=== PATIENT | female | born 1990 | race Caucasian/White ===

== ENCOUNTER 2018-04-30 20:44 | Emergency (ER) | payer OTHER ==
[2018-04-30] MEDS ORDERED: solu-MEDROL 125 MG IM ONE (21:33)
[2018-04-30] MEDS ORDERED: ATARAX 25 MG PO ONE (21:36)
--- NOTE | 2018-04-30 21:43 | ERPHSYRPT ---
- History of Present Illness Time Seen by Provider: 04/30/18 21:27 Source: patient Exam Limitations: no limitations Patient Subjective Stated Complaint: pt reports stress induced hives. states shes had them for a week, shes been taking oral prednisone since with benadryl with no improvement. Triage Nursing Assessment: pt is aox3, pupils perrl, pt afebrile, resps easy and non labored, lung sounds are clear throughout, radial pulses strong and equal, cap refill <3 seconds. skin is pink warm dry. hives noted to the arms legs chest and scalp. skin is intact. Physician History: 27-year-old white female with history of stress-induced hives arrives with complaint of generalized itching on her abdomen chest back legs arm symptoms for 8 days. She states she's been taking Benadryl at home also taking tapering dose of prednisone. Past medical history includes stress-induced hives. Anxiety. Past surgical history includes tonsillectomy and adenoidectomy, , orthopedic surgery, tubal ligation, salpingectomy secondary to tubal Last menstrual period now Patient states she took 25 mg Benadryl this morning 50 mg just prior to arrival She has a prednisone taper Timing/Duration: day(s) (8 days) Severity: moderate Modifying Factors: Improves With: medication (taking Benadryl twice a day, tapering prednisone) Associated Symptoms: rash (itching to extremities back chest with hives), No nausea, No vomiting, No abdominal pain, No shortness of breath, No heartburn, No diaphoresis, No cough, No chills, No chest pain, No fever, No headaches, No loss of appetite, No malaise Allergies/Adverse Reactions: aspirin Allergy (Verified 04/30/18 21:09) codeine Allergy (Verified 04/30/18 21:09) Penicillins Allergy (Verified 04/30/18 21:09) Sulfa (Sulfonamide Antibiotics) Allergy (Verified 04/30/18 21:09) Home Medications: Citalopram Hydrobromide [Citalopram HBr] 20 mg PO DAILY 04/30/18 [History] Lorazepam 0.5 mg [Ativan 0.5 MG] 0.5 mg PO Q4H PRN PRN 06/16/18 [History] - Review of Systems Constitutional: No Fever, No Chills Eyes: No Symptoms Ears, Nose, & Throat: No Symptoms Respiratory: No Cough, No Dyspnea Cardiac: No Chest Pain, No Edema, No Syncope Abdominal/Gastrointestinal: No Abdominal Pain, No Nausea, No Vomiting, No Diarrhea Genitourinary Symptoms: No Dysuria Musculoskeletal: No Back Pain, No Neck Pain Skin: Other (Itching to extremities on arms legs back chest hives at times) Neurological: No Dizziness, No Focal Weakness, No Sensory Changes Psychological: No Symptoms Endocrine: No Symptoms All Other Systems: Reviewed and Negative - Past Medical History Pertinent Past Medical History: Yes Other Medical History: stress induced hives - Past Surgical History Past Surgical History: Yes Musculoskeletal: Orthopedic Surgery Female Surgical History: Section, Other Other Surgical History: right arm. salping - Social History Smoking Status: Current every day smoker Drug Use: none Patient Lives Alone: No - Female History Hx Last Menstrual Period: 04/30/18 Hx Now: No - Nursing Vital Signs Nursing Vital Signs: Initial Vital Signs Temperature 98.6 F 04/30/18 20:50 Pulse Rate 95 H 04/30/18 20:50 Respiratory Rate 20 04/30/18 20:50 Blood Pressure 128/89 04/30/18 20:50 O2 Sat by Pulse Oximetry 99 04/30/18 20:50 Pain Scale Pain Intensity 0 - Physical Exam General Appearance: mild distress Eye Exam: PERRL/EOMI, eyes nml inspection Ears, Nose, Throat Exam: normal ENT inspection, TMs normal, pharynx normal, moist mucous membranes Neck Exam: normal inspection, non-tender, supple, full range of motion Respiratory Exam: normal breath sounds, lungs clear, No respiratory distress Cardiovascular Exam: regular rate/rhythm, normal heart sounds, normal peripheral pulses Gastrointestinal/Abdomen Exam: soft, normal bowel sounds, No tenderness, No mass Back Exam: normal inspection, normal range of motion, No CVA tenderness, No vertebral tenderness Extremity Exam: normal inspection, normal range of motion, pelvis stable Neurologic Exam: alert, oriented x 3, cooperative, basic combatant swimmer II-XII nml as tested, normal mood/affect, nml cerebellar function, nml station & gait, sensation nml, No motor deficits Skin Exam: normal color, warm, dry, No rash Lymphatic Exam: No adenopathy SpO2 Interpretation: normal (99%) SpO2: 99 Oxygen Delivery: Room Air - Course Nursing assessment & vital signs reviewed: Yes Ordered Tests: Medication Summary Generic Name Dose Route Start Last Admin Trade Name Freq PRN Reason Stop Dose Admin Hydroxyzine HCl 25 mg 04/30/18 21:36 Atarax 25 Mg PO 04/30/18 21:37 STAT ONE Discontinued Medications Generic Name Dose Route Start Last Admin Trade Name Freq PRN Reason Stop Dose Admin Methylprednisolone Sodium Succinate 125 mg 04/30/18 21:33 Solu-Medrol 125 Mg IM 04/30/18 21:34 STAT ONE - Progress Progress: improved Progress Note: 04/30/18 21:42 27-year-old white female with history of stress-induced hives complains of itching to her arms legs back chest abdomen symptoms for 8 days. On physical examination I can see where patient has been scratching I don't really see elevated arrives. Patient is already taking Benadryl however not in the appropriate dose. She is also on a tapering dose of prednisone. Will go ahead and give patient an injection of Solu-Medrol have her continue her prednisone taper. Will change patient to Atarax 25 mg orally 3 times a day as needed #20 tablets. Patient not to take Benadryl with the Atarax. The patient's med list shows patient is on citalopram however patient states she is not taking this. She is on Prozac. - Departure Time of Disposition: 21:43 Departure Disposition: Home Clinical Impression: Stress-induced urticaria, Itching Condition: Fair Critical Care Time: No Referrals: BOBBY TAPIA, TELEPHONE INSTRUMENT SUPERVISOR [Primary Care Provider] - Additional Instructions: Return home. Atarax 25 mg 3 times a day as needed. Continue prednisone taper. Do not take Benadryl with Atarax. Follow-up with your family doctor if symptoms are worse no better in 24 hours to 48 hours or persist longer than 72 hours. Return for acute distress or for severe symptoms. Prescriptions: Hydroxyzine HCl 25 mg [Atarax 25 mg] 25 mg PO TID PRN #20 tablet
[2018-04-30] MEDS ORDERED: solu-MEDROL 125 MG ONE (21:50)
[2018-04-30] MEDS ORDERED: ATARAX 25 MG ONE (21:50)
[2018-04-30 22:18] VITALS: BP 127/83; PULSE 83; O2SAT 98
== END 2018-04-30 22:17 | disposition home or self-care (01) ==
LOC: ED 20:44
DX: L50.8 Other urticaria (principal)
CPT/HCPCS: 96372; 99283; J2930; A9270-GY

== ENCOUNTER 2019-08-12 18:24 | Emergency (ER) | payer OTHER ==
[2019-08-12] MEDS ORDERED: Levofloxacin 250MG Tablet PO ONE (18:36)
[2019-08-12 18:39] VITALS: BP 136/83; PULSE 108; O2SAT 100
[2019-08-12] MEDS ORDERED: Levofloxacin 250MG Tablet ONE (18:40)
[2019-08-12] MEDS ORDERED: Robitussin AC Syrup Unit Dose Cup ONE (18:41)
[2019-08-12] MEDS: Robitussin AC Syrup Unit Dose Cup PO STA ×2 (18:42→18:53)
[2019-08-12] MEDS ORDERED: Robitussin-Dm Syrup PO ONE (18:42)
--- NOTE | 2019-08-12 18:42 | ERPHSYRPT ---
- History of Present Illness Time Seen by Provider: 08/12/19 18:37 Physician History: 29-year-old female came to the emergency room with complaining of sore throat, cough and chest congestion started 2 days ago. She denies any fever, chills, nausea or vomiting. Timing/Duration: gradual onset ENT Location: throat Prearrival Treatment: no prearrival treatment Associated Symptoms: cough, No fever, No chills Allergies/Adverse Reactions: aspirin Allergy (Verified 04/30/18 21:09) codeine Allergy (Verified 04/30/18 21:09) Penicillins Allergy (Verified 04/30/18 21:09) Sulfa (Sulfonamide Antibiotics) Allergy (Verified 04/30/18 21:09) - Review of Systems Constitutional: No Fever, No Chills Eyes: No Symptoms Ears, Nose, & Throat: No Symptoms Respiratory: No Cough, No Dyspnea Cardiac: No Chest Pain, No Edema, No Syncope Abdominal/Gastrointestinal: No Abdominal Pain, No Nausea, No Vomiting, No Diarrhea Genitourinary Symptoms: No Dysuria Musculoskeletal: No Back Pain, No Neck Pain Skin: No Rash Neurological: No Dizziness, No Focal Weakness, No Sensory Changes Psychological: No Symptoms Endocrine: No Symptoms All Other Systems: Reviewed and Negative - Past Medical History Pertinent Past Medical History: Yes Other Medical History: stress induced hives - Past Surgical History Past Surgical History: Yes Musculoskeletal: Orthopedic Surgery Female Surgical History: Section, Other Other Surgical History: right arm. salping - Social History Smoking Status: Current every day smoker Drug Use: none Patient Lives Alone: No - Physical Exam General Appearance: no apparent distress, alert Eye Exam: bilateral eye: PERRL, EOMI Nasal Exam: normal inspection Throat Exam: pharynx normal, moist mucus membranes, pharynx swelling, No tonsillar exudate, No tonsillar swelling Neck Exam: supple Cardiovascular/Respiratory Exam: normal breath sounds, regular rate/rhythm Abdominal Exam: non-tender, soft Neurologic Exam: alert, oriented x 3, sensation nml, No motor deficits Skin Exam: normal color, warm, dry - Course Nursing assessment & vital signs reviewed: Yes Ordered Tests: Medication Summary Generic Name Dose Route Start Last Admin Trade Name Freq PRN Reason Stop Dose Admin Guaifenesin/Codeine Phosphate 5 ml 08/12/19 18:36 Robitussin Ac Syrup Unit Dose Cup PO 08/12/19 18:37 Q4H PRN STA Levofloxacin 500 mg 08/12/19 18:36 Levofloxacin 250mg Tablet PO 08/12/19 18:37 STAT ONE - Progress Progress: unchanged Counseled pt/family regarding: diagnosis, need for follow-up - Departure Departure Disposition: Home Clinical Impression: Bronchitis Pharyngitis Qualifiers: Pharyngitis/tonsillitis etiology: other specified organisms Qualified Code(s): J02.8 - Acute pharyngitis due to other specified organisms Condition: Stable Critical Care Time: No Referrals: BOBBY TAPIA, SNAILER [Primary Care Provider] - Instructions: Cough, Adult (DC), Acute Bronchitis, Adult (DC) Additional Instructions: Discharge/Care Plan MANUEL STUART was seen on 08/12/19 in the Emergency Room. The patient was counseled regarding Diagnosis,Lab results, Imaging studies, need for follow up and when to return to the Emergency Room. Prescriptions given: Discharge Note I have spoken with the patient and/or caregivers. I have explained the patient' s condition, diagnosis and treatment plan based on the information available to me at this time. I have answered the patient's and/or caregiver's questions and addressed any concerns. The patient and/or caregivers have as good understanding of the patient's diagnosis, condition and treatment plan as can be expected at this point. The vital signs have been stable. The patient's condition is stable and appropriate for discharge from the emergency department. The patient will pursue further outpatient evaluation with the primary care physician or other designated or consulting physician as outlined in the discharge instructions. The patient and/or caregivers are agreeable to this plan of care and follow-up instructions have been explained in detail. The patient and/or caregivers have received these instruction. The patient/and or caregivers are aware that any significant change in condition or worsening of symptoms should prompt an immediate return to this or the closest emergency department or call 911. Prescriptions: Levofloxacin [Levaquin 500 MG Tablet] 500 mg PO QAM #5 tablet Benzonatate [Tessalon Perle] 100 mg PO QID #30 capsule
[2019-08-12] MEDS ORDERED: Robitussin-Dm Syrup ONE (18:52)
== END 2019-08-12 19:04 | disposition home or self-care (01) ==
LOC: ED 18:24
DX: J40 Bronchitis, not specified as acute or chronic (principal); J02.8 Acute pharyngitis due to other specified organisms
CPT/HCPCS: 99283; A9270-GY

== ENCOUNTER 2019-12-12 11:14 | Emergency (ER) | payer OTHER ==
--- NOTE | 2019-12-12 11:18 | ERPHSYRPT ---
- History of Present Illness Time Seen by Provider: 12/12/19 11:17 Source: patient Exam Limitations: no limitations Physician History: The patient is a 21-year-old female with a past medical history significant for anxiety presents with the chief complaint chest pain. Onset reportedly was yesterday. She states that she felt "off" and has experienced some nausea and felt as if she were running a fever because she felt "hot". She reportedly went [facility] Emergency Department yesterday and tested negative for influenza and she states that they did nothing else before they discharged her. tthe pain is described as a sharp pain located over the left anterior aspect of her chest. The pain is nonradiating, constant, and increases with palpation of the chest wall in addition to taking a deep breath. She denies shortness of breath, cough, sore throat, rhinorrhea, abdominal pain, diarrhea, and constipation. She reported had one episode of dry heaving. She reportedly has been taken Tylenol for the pain with no relief. She is concerned she may be suffering from a heart attack which is why she came to the emergency department today. Allergies/Adverse Reactions: aspirin Allergy (Verified 12/12/19 11:24) codeine Allergy (Verified 12/12/19 11:24) Penicillins Allergy (Verified 12/12/19 11:24) Sulfa (Sulfonamide Antibiotics) Allergy (Verified 12/12/19 11:24) Home Medications: Fluoxetine HCl 20 mg [Prozac 20 MG] 40 mg PO DAILY 08/12/19 [History] Lorazepam 1 mg [Ativan 1 MG] 1.5 tab PO DAILY PRN PRN 12/12/19 [History] Hx Tetanus, Diphtheria Vaccination/Date Given: Yes Hx Influenza Vaccination/Date Given: No Hx Pneumococcal Vaccination/Date Given: No - Review of Systems Constitutional: Fever Eyes: No Symptoms Ears, Nose, & Throat: No Symptoms Respiratory: No Dyspnea, No Dyspnea on Exertion (ESQUEDA) Cardiac: Chest Pain, No Edema, No Palpitations Abdominal/Gastrointestinal: Nausea, Vomiting, No Abdominal Pain Genitourinary Symptoms: No Dysuria, No Frequency, No Hematuria, No Hesitancy Skin: No Symptoms Neurological: No Symptoms, No Headache Psychological: No Symptoms Endocrine: No Symptoms Hematologic/Lymphatic: No Symptoms Immunological/Allergic: No Symptoms All Other Systems: Reviewed and Negative - Past Medical History Pertinent Past Medical History: Yes Psycho-Social History: Anxiety, Depression Other Medical History: stress induced hives - Past Surgical History Past Surgical History: Yes Musculoskeletal: Orthopedic Surgery Female Surgical History: Section, Other Other Surgical History: right arm. salping - Social History Smoking Status: Current every day smoker Drug Use: none Patient Lives Alone: No - Nursing Vital Signs Nursing Vital Signs: Initial Vital Signs Temperature 100.2 F 12/12/19 11:26 Pulse Rate 105 H 12/12/19 11:26 Respiratory Rate 18 12/12/19 11:26 Blood Pressure 129/86 12/12/19 11:26 O2 Sat by Pulse Oximetry 98 12/12/19 11:26 Pain Scale Pain Intensity 0 - Physical Exam General Appearance: no apparent distress, alert Eye Exam: PERRL/EOMI, EOM palsy/anisocoria Ears, Nose, Throat Exam: normal ENT inspection, TMs normal, No TM abnormal (R), No TM abnormal (L), No pharyngeal erythema, No tonsillar exudate Neck Exam: normal inspection, non-tender, supple Respiratory Exam: normal breath sounds, chest tenderness, lungs clear, airway intact, No respiratory distress, No diminished breath sounds, No accessory muscle use Cardiovascular Exam: normal heart sounds, normal peripheral pulses, tachycardia , capillary refill <2 sec, No edema, No pulse deficit Gastrointestinal/Abdomen Exam: soft, No tenderness, No distention, No mass, No guarding, No ecchymosis Pelvic Exam: not done Rectal Exam: deferred Extremity Exam: normal inspection Neurologic Exam: alert, oriented x 3, cooperative, other (Seems anxious) Skin Exam: normal color, warm, dry, No rash, No petechiae, No jaundice SpO2 Interpretation: normal O2 Delivery: Room Air - Course Nursing assessment & vital signs reviewed: Yes EKG Interpreted by Me: RATE (115), Sinus Tach, NORMAL AXIS, NORMAL QRS, Non- specific ST Changes - Radiology Exams Chest X-ray Interpretation: Reviewed by me (Discoid scarring vs. atelectasis in the left lower lobe) - CT Exams Chest CT Interpretation: Other (No PE, scarring again demonstrated to left lower lobe) Ordered Tests: Active Orders 24 hr Category Date Time Status EKG-ER Only STAT Care 12/12/19 11:47 Active Re-Check Vital Signs STAT Care 12/12/19 14:18 Active CHEST 2 VIEWS (PA AND LAT) Stat Exams 12/12/19 11:48 Completed CHEST WITH CONTRAST [CT] Stat Exams 12/12/19 12:49 Completed BMP Stat Lab 12/12/19 12:05 Completed D-DIMER QUANTITATIVE Stat Lab 12/12/19 12:05 Completed HCG,QUALITATIVE URINE Stat Lab 12/12/19 13:15 Completed TROPONIN Stat Lab 12/12/19 12:05 Completed Medication Summary Discontinued Medications Generic Name Dose Route Start Last Admin Trade Name Jacek PRN Reason Stop Dose Admin Acetaminophen 975 mg 12/12/19 13:25 12/12/19 13:30 Tylenol 325 Mg PO 12/12/19 13:26 975 mg STAT ONE Administration Acetaminophen Confirm 12/12/19 13:29 Tylenol 325 Mg Administered 12/12/19 13:30 Dose 975 mg .ROUTE .STK-MED ONE Ketorolac Tromethamine 15 mg 12/12/19 12:50 12/12/19 12:54 Toradol 30 Mg Injection IV 12/12/19 12:51 15 mg STAT ONE Administration Ketorolac Tromethamine Confirm 12/12/19 12:54 Toradol 30 Mg Injection Administered 12/12/19 12:55 Dose 30 mg .ROUTE .STK-MED ONE Lab/Rad Data: Laboratory Result Diagrams 12/12/19 12:05 Laboratory Results 12/12/19 12/12/19 12/12/19 Range/Units 13:15 12:05 12:05 D-Dimer 726 H* (215-500) ng/mL Sodium (137-145) mmol/L Potassium (3.5-5.1) mmol/L Chloride (98-107) mmol/L Carbon Dioxide (22-30) mmol/L Anion Gap (5-15) MEQ/L BUN (7-17) mg/dL Creatinine (0.52-1.04) mg/dL Estimated GFR ML/MIN Glucose (74-106) mg/dL Calcium (8.4-10.2) mg/dL Troponin I < 0.012 (0.000-0.034) ng/mL Urine HCG, Qual NEGATIVE (Negative) 12/12/19 Range/Units 12:05 D-Dimer (215-500) ng/mL Sodium 138 (137-145) mmol/L Potassium 3.8 (3.5-5.1) mmol/L Chloride 96 L (98-107) mmol/L Carbon Dioxide 25 (22-30) mmol/L Anion Gap 21.1 H (5-15) MEQ/L BUN 11 (7-17) mg/dL Creatinine 0.57 (0.52-1.04) mg/dL Estimated GFR > 60.0 ML/MIN Glucose 103 (74-106) mg/dL Calcium 9.3 (8.4-10.2) mg/dL Troponin I (0.000-0.034) ng/mL Urine HCG, Qual (Negative) - Progress Progress: improved Progress Note: 12/12/19 13:16 The patient was witness walking around the ED and appeared to be in no obvious distress 12/12/19 20:02 Nontoxic in appearance. Labs, EKG, CXR, and CT reviewed. Low grade fever. Patient's symptoms likely secondary to a viral upper respiratory track infection. Low suspicion for endocarditis. Chest pain may be secondary to pleurisy. No evidence of acute myocardial ischemia or injury on EKG and troponin wnl. No evidence to suggest myocarditis at this time. I also suspect the patient's anxiety may be contributing to her symptoms. Ultimately, she was dischaged home and instructed to take naproxen scheduled for pain and to f/u with her PCP as needed. Counseled pt/family regarding: lab results, diagnosis, need for follow-up, rad results - Departure Departure Disposition: Home Clinical Impression: Viral URI, Pleurisy, Atypical chest pain Condition: Stable Critical Care Time: No Referrals: BOBBY TAPIA EDGE DRUMMER [Primary Care Provider] - Instructions: Atypical Chest Pain, Pleuritic Chest Pain Prescriptions: Naproxen 500 mg [Naprosyn 500 MG] 500 mg PO BID #10 tablet
--- NOTE | 2019-12-12 12:19 | XRAY ---
Indication: Chest pain. Comparison: None PA/lateral chest demonstrates retrocardiac discoid atelectasis/scarring, probably left lower lobe. Remaining heart, lungs, and bony thorax normal.
[2019-12-12 12:22] LABS: ANION GAP 21.1 MEQ/L (5-15); BLOOD UREA NITROGEN 11 mg/dL (7-17); CHLORIDE 96 mmol/L (98-107); Calcium 9.3 mg/dL (8.4-10.2); Carbon Dioxide 25 mmol/L (22-30); Creatinine 1 0.57 mg/dL (0.52-1.04); Glucose 103 mg/dL (74-106); Potassium 3.8 mmol/L (3.5-5.1); SODIUM 138 mmol/L (137-145)
[2019-12-12] MEDS ORDERED: TORAdol 30 mg Injection IV ONE (12:50)
[2019-12-12] MEDS ORDERED: TORAdol 30 mg Injection ONE (12:54)
[2019-12-12] MEDS ORDERED: TYLENOL 325 MG PO ONE (13:25)
[2019-12-12] MEDS ORDERED: TYLENOL 325 MG ONE (13:29)
--- NOTE | 2019-12-12 14:16 | XRAY ---
Indication: Left chest pain, short of breath, fever, cough, vomiting, and "feeling sick.". Elevated d-dimer. Multiple contiguous axial images obtained through the chest using 80 cc Isovue 370 contrast and PE protocol. Comparison: None There is poor opacification of the pulmonary arteries limiting evaluation for pulmonary embolus. No large central pulmonary embolus. Heart is not enlarged. Aorta is normal in course and caliber. No pathologic mediastinal/hilar lymphadenopathy. Lungs demonstrate left lower lobe subsegmental atelectasis anteriorly. Minimal fibrosis/scarring in the right middle lobe and left base. Remaining lungs are clear. Bony thorax intact. Limited upper abdomen demonstrates mild fatty liver and 13.9 cm splenomegaly. Impression: 1. Pulmonary embolus evaluation limited due to suboptimal contrast opacification. No large central pulmonary embolus. 2. Left lower lobe subsegmental atelectasis and scattered fibrosis/scarring. 3. Incidental fatty liver and splenomegaly.
[2019-12-12 14:23] VITALS: BP 116/76; PULSE 87; O2SAT 98
== END 2019-12-12 14:36 | disposition home or self-care (01) ==
LOC: ED 11:14
DX: J06.9 Acute upper respiratory infection, unspecified (principal); R09.1 Pleurisy; R07.89 Other chest pain
CPT/HCPCS: 36000; 36415; 71046; 71260; 80048; 84484; 84703; 85379; 93005; 96374; 99284; J1885; A9270-GY

== ENCOUNTER 2021-06-07 21:57 | Emergency (ER) | payer OTHER ==
[2021-06-07] MEDS ORDERED: Hydromorphone 1 mg/ml Injection IV ONE (22:19)
[2021-06-07] MEDS ORDERED: Zofran 4 MG/2 ML VIAL ONE (22:22)
[2021-06-07] MEDS ORDERED: Hydromorphone 1 mg/ml Injection ONE (22:22)
[2021-06-07] MEDS ORDERED: Zofran 4 MG/2 ML VIAL IV ONE (22:22)
--- NOTE | 2021-06-07 22:28 | ERPHSYRPT ---
- History of Present Illness Time Seen by Provider: 06/07/21 22:24 Source: patient, family Exam Limitations: no limitations Physician History: Patient is a 30-year-old female who was at the elementary school at a school fair she was swinging on a swing with strap which was not securely fastened as a consequence she inverted and fell directly on her face and chest. There was no loss of consciousness. She complains of pain in the head jaws neck and anterior chest. This occurred just prior to arrival she complains that her occlusion seems off Occurred: just prior to arrival Reason for Fall: fell from height Injuries/Pain Location: head, face, neck, chest Loss of Consciousness: no loss of consciousness Quality: throbbing Severity of Pain-Max: moderate Severity of Pain-Current: moderate Modifying Factors: Improves With: movement Associated Symptoms (Fall): chest pain, headache, neck pain, other (Complains of pain in the head and face) Allergies/Adverse Reactions: aspirin Allergy (Verified 06/07/21 22:06) codeine Allergy (Verified 06/07/21 22:06) hydroxychloroquine [From Plaquenil] Allergy (Verified 06/07/21 22:07) Hives Penicillins Allergy (Verified 06/07/21 22:06) Sulfa (Sulfonamide Antibiotics) Allergy (Verified 06/07/21 22:06) Home Medications: Clonazepam 1 mg PO DAILY PRN 06/07/21 [History] Dicyclomine HCl 10 mg PO TID 06/07/21 [History] Escitalopram Oxalate 10 mg [Lexapro 10 MG] 15 mg PO DAILY 06/07/21 [History] Metoprolol Succinate 25 mg PO DAILY 06/07/21 [History] Secukinumab [Cosentyx Syringe] 150 mg SQ WEEKLY 06/07/21 [History] Trazodone HCl 150 mg PO HS 06/07/21 [History] Hx Tetanus, Diphtheria Vaccination/Date Given: Yes Hx Influenza Vaccination/Date Given: No Hx Pneumococcal Vaccination/Date Given: No - Review of Systems Constitutional: No Fever, No Chills Eyes: No Symptoms Ears, Nose, & Throat: No Symptoms Respiratory: No Cough, No Dyspnea Cardiac: No Chest Pain, No Edema, No Syncope Abdominal/Gastrointestinal: No Abdominal Pain, No Nausea, No Vomiting, No Diarrhea Genitourinary Symptoms: No Dysuria Musculoskeletal: Arthralgias, No Back Pain, No Neck Pain Skin: No Rash Neurological: No Dizziness, No Focal Weakness, No Sensory Changes Psychological: No Symptoms Endocrine: No Symptoms All Other Systems: Reviewed and Negative - Past Medical History Pertinent Past Medical History: Yes Neurological History: No Pertinent History ENT History: No Pertinent History Cardiac History: No Pertinent History Respiratory History: No Pertinent History Endocrine Medical History: No Pertinent History Musculoskeletal History: No Pertinent History GI Medical History: No Pertinent History History: No Pertinent History Psycho-Social History: Anxiety, Depression Female Reproductive Disorders: No Pertinent History Other Medical History: stress induced hives - Past Surgical History Past Surgical History: Yes Musculoskeletal: Orthopedic Surgery Female Surgical History: Section, Other Other Surgical History: right arm. salping - Social History Smoking Status: Current every day smoker Exposure to second hand smoke: No Drug Use: none Patient Lives Alone: No - Female History Hx Now: No - Nursing Vital Signs Nursing Vital Signs: Initial Vital Signs Pulse Rate 74 06/07/21 21:57 Respiratory Rate 18 06/07/21 21:57 Blood Pressure 137/98 06/07/21 21:57 O2 Sat by Pulse Oximetry 98 06/07/21 21:57 Pain Scale Pain Intensity 6 - Delfina Coma Score Best Eye Response (Delfina): (4) open spontaneously Best Verbal Response (Delfina): (5) oriented Best Motor Response (Delfina): (6) obeys commands [place] Total: 15 - Physical Exam General Appearance: moderate distress, alert Head Injury: contusions Eye Exam: PERRL/EOMI, eyes nml inspection ENT Exam: airway nml, dental injury (Occlusion seems off), malocclusion, oral injury Neck Exam: normal inspection, limited range of motion (Patient in a Blair collar), mid-line tenderness, c-collar in place, No tenderness Respiratory/Chest Exam: normal breath sounds, No chest tenderness, No respiratory distress Cardiovascular Exam: normal heart sounds, regular rate/rhythm Gastrointestinal Exam: soft, No tenderness, No distention, No guarding, No ecchymosis Back Exam: normal inspection, No vertebral tenderness Extremity Exam: normal inspection, normal range of motion, pelvis stable, No deformities Neurologic Exam: alert, oriented x 3, cooperative, sensation nml, No motor deficits Skin Exam: normal color, warm, dry - Course Nursing assessment & vital signs reviewed: Yes - CT Exams Head CT Interpretation: Tele-radiologist Report, Other (CT scan of the head facial bones cervical spine and chest all negative) Ordered Tests: Active Orders 24 hr Category Date Time Status Cervical Collar Application STAT Care 06/07/21 22:17 Active IV Insertion STAT Care 06/07/21 22:20 Active CERVICAL SPINE WO CONTRAST [CT] Stat Exams 06/07/21 22:18 Taken CHEST WITHOUT CONTRAST [CT] Stat Exams 06/07/21 22:18 Taken FACIAL BONES WO CONTRAST [CT] Stat Exams 06/07/21 22:18 Taken HEAD WITHOUT CONTRAST [CT] Stat Exams 06/07/21 22:18 Taken Medication Summary Discontinued Medications Generic Name Dose Route Start Last Admin Trade Name Freq PRN Reason Stop Dose Admin Hydromorphone HCl 1 mg 06/07/21 22:19 06/07/21 22:29 Hydromorphone 1 Mg/Ml Injection IV 06/07/21 22:20 1 mg STAT ONE Administration Hydromorphone HCl Confirm 06/07/21 22:22 Hydromorphone 1 Mg/Ml Injection Administered 06/07/21 22:23 Dose 1 mg .ROUTE .STK-MED ONE Ondansetron HCl 4 mg 06/07/21 22:22 06/07/21 22:29 Zofran 4 Mg/2 Ml Vial IV 06/07/21 22:23 4 mg STAT ONE Administration Ondansetron HCl Confirm 06/07/21 22:22 Zofran 4 Mg/2 Ml Vial Administered 06/07/21 22:23 Dose 4 mg .ROUTE .STK-MED ONE - Progress Progress: improved - Departure Departure Disposition: Home Clinical Impression: Multiple contusions Condition: Stable Critical Care Time: No Referrals: BOBBY TAPIA, INFECTIOUS WASTE TECHNICIAN [Primary Care Provider] - Instructions: Generalized Neck Pain (DC), Contusion (DC) Prescriptions: Oxycodone HCl/Acetaminophen [Percocet 5-325 mg Tablet] 1 each PO Q6H PRN PRN #12 tablet MDD 4 PRN Reason: Pain
[2021-06-07 22:38] VITALS: O2SAT 98
[2021-06-07 23:10] VITALS: BP 133/80; PULSE 80
[2021-06-08] MEDS ORDERED: PERCOCET TABLET 5/325MG PO ONE
[2021-06-08] MEDS ORDERED: PERCOCET TABLET 5/325MG ONE (00:04)
--- NOTE | 2021-06-08 06:33 | XRAY ---
Indication: Pain following fall. Multiple contiguous axial images obtained through the chest without contrast. Comparison: None Lungs demonstrate minimal scattered subsegmental atelectasis/scarring greatest right middle lobe. No suspicious pulmonary mass/nodule, infiltrate, effusion, or pneumothorax. Heart is not enlarged. Aorta is normal in course and caliber. No pathologic mediastinal lymphadenopathy. Bony thorax intact. Limited upper abdomen demonstrates cholecystectomy clips. Impression: 1. Again scattered subsegmental atelectasis/scarring. 2. Remaining CT chest without contrast exam is negative. Comment: Preliminary interpretation made by [facility]. No critical discrepancy.
--- NOTE | 2021-06-08 06:35 | XRAY ---
Indication: Pain following fall. Multiple contiguous axial images obtained through the head without contrast. Comparison: None Normal appearing brain parenchyma, ventricles, and bony calvarium. 2.8 cm polyp/retention cyst occupies the left maxillary sinus. Remaining visualized paranasal sinuses and mastoid air cells are clear. CT facial bones and CT cervical spine reported separately. Impression: 1. Left maxillary sinus polyp/retention cyst. 2. Remaining CT head without contrast exam is normal. Comment: Preliminary interpretation made by [facility]. No critical discrepancy.
--- NOTE | 2021-06-08 06:38 | XRAY ---
Indication: Pain following fall. Multiple contiguous axial images obtained through the cervical spine. Sagittal and coronal reformatted images obtained. Comparison: None Axial images negative for acute fracture, suspicious bony lesions, or spinal canal stenosis. Sagittal and coronal reformatted images demonstrate normal alignment with vertebral body heights/disc spaces maintained. No acute compression fracture, subluxation, or jumped facet. Normal-appearing craniocervical junction. Visualized noncontrasted soft tissues including lung apices are unremarkable. CT facial bones and CT head reported separately. Impression: Normal CT cervical spine Comment: Preliminary interpretation made by [facility]. No critical discrepancy.
--- NOTE | 2021-06-08 06:40 | XRAY ---
Indication: Pain following fall. Multiple contiguous axial images obtained through the facial bones. Sagittal and coronal reformatted images obtained. Comparison: None No acute fracture, suspicious bony lesions, or radiopaque foreign body. Orbits including roof, kc, and floors are intact. Left maxillary sinus demonstrates 3.2 cm polyp/retention cyst. Remaining visualized paranasal sinuses and nasal passages are clear. Very minimal nasoseptal deviation to the right. Orbits demonstrates bilateral proptosis. Remaining visualized noncontrasted soft tissues CT cervical spine and CT head reported separately. Impression: 1. Bilateral ophthalmic proptosis and large left maxillary sinus polyp/retention cyst. 2. Remaining CT facial bones negative. Comment: Preliminary interpretation made by [facility]. No critical discrepancy.
== END 2021-06-08 00:16 | disposition home or self-care (01) ==
LOC: ED 21:57
DX: S00.93XA Contusion of unspecified part of head, initial encounter (principal); S20.219A Contusion of unspecified front wall of thorax, initial encounter; R51.9 Headache, unspecified; R07.9 Chest pain, unspecified; W18.39XA Other fall on same level, initial encounter; Y93.89 Activity, other specified; Y92.89 Other specified places as the place of occurrence of the external cause; M54.2 Cervicalgia; R68.84 Jaw pain; Z79.899 Other long term (current) drug therapy; F41.8 Other specified anxiety disorders
CPT/HCPCS: 36000; 70450; 70486; 71250; 72125; 96374; 96375; 99284; J1170; J2405; L0120; A9270-GY

== ENCOUNTER 2023-01-09 16:15 | Emergency (ER) | payer OTHER ==
--- NOTE | 2023-01-09 16:25 | ERPHSYRPT ---
- History of Present Illness Time Seen by Provider: 01/09/23 16:25 Source: patient Exam Limitations: no limitations Physician History: This is a 32-year-old white female patient of OB physician Dr. Manzanares out of [facility] who presents with abnormal vaginal bleeding since the removal of her IUD 3 days ago. Patient states that she has had suprapubic pain which has s ubsided somewhat but increasing amounts of vaginal bleeding since her IUD was removed 3 days ago. She has not had any vomiting or diarrhea. However she is experiencing the increased vaginal bleeding as well as chills. She presents with a low-grade fever of 99.4. Patient has a history of hypertension, anxiety and depression. She denies chest pain and she denies shortness of breath. Timing/Duration: day(s) (3), worse (Vaginal bleeding has worsened) Activites at Onset: none Quality: aching (Mild), cramping (Mild) Onset Location: vaginal Severity of Pain-Max: moderate Severity of Pain-Current: mild Sexual intercourse history: non-contributory Modifying Factors: Improves With: nothing Associated Symptoms: abdominal pain (Mild suprapubic), vaginal discharge (Bloody), No fever, No nausea, No vomiting Allergies/Adverse Reactions: aspirin Allergy (Verified 01/09/23 16:38) codeine Allergy (Verified 01/09/23 16:38) hydroxychloroquine [From Plaquenil] Allergy (Verified 01/09/23 16:38) Hives Penicillins Allergy (Verified 01/09/23 16:38) Sulfa (Sulfonamide Antibiotics) Allergy (Verified 01/09/23 16:38) Home Medications: Dicyclomine HCl 10 mg PO TID 06/07/21 [History] Escitalopram Oxalate [Lexapro] 15 mg PO DAILY 06/07/21 [History] Metoprolol Succinate 25 mg PO DAILY 06/07/21 [History] Secukinumab [Cosentyx Syringe] 150 mg SQ WEEKLY 06/07/21 [History] Trazodone HCl 150 mg PO HS 06/07/21 [History] clonazePAM [Clonazepam] 1 mg PO DAILY PRN 06/07/21 [History] Hx Tetanus, Diphtheria Vaccination/Date Given: Yes Hx Influenza Vaccination/Date Given: No Hx Pneumococcal Vaccination/Date Given: No Travel Risk - International Travel Have you traveled outside of the country in past 3 weeks: No - Coronavirus Screening Are you exhibiting any of the following symptoms?: No Close contact with a COVID-19 positive Pt in past 14-21 Days: No - Vaccine Status Have you recieved a Covid-19 vaccination: Yes 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 - Vaccination Dates Date of 2cond Vaccination (if applicable): unknown - Review of Systems Constitutional: No Symptoms Eyes: No Symptoms Ears, Nose, & Throat: No Symptoms Respiratory: No Symptoms Cardiac: No Symptoms Abdominal/Gastrointestinal: Abdominal Pain (Mild suprapubic) Genitourinary Symptoms: Vaginal Bleeding Musculoskeletal: No Symptoms Skin: No Symptoms Neurological: No Symptoms Psychological: No Symptoms Endocrine: No Symptoms Hematologic/Lymphatic: No Symptoms Immunological/Allergic: No Symptoms All Other Systems: Reviewed and Negative - Past Medical History Pertinent Past Medical History: Yes Neurological History: No Pertinent History ENT History: No Pertinent History Cardiac History: No Pertinent History Respiratory History: No Pertinent History Endocrine Medical History: No Pertinent History Musculoskeletal History: No Pertinent History GI Medical History: No Pertinent History History: No Pertinent History Psycho-Social History: Anxiety, Depression Female Reproductive Disorders: No Pertinent History Other Medical History: stress induced hives - Past Surgical History Past Surgical History: Yes Gastrointestinal: Cholecystectomy Musculoskeletal: Orthopedic Surgery Female Surgical History: Section, Other Other Surgical History: right arm. salping - Social History Smoking Status: Current every day smoker Exposure to second hand smoke: No Drug Use: none Patient Lives Alone: No - Nursing Vital Signs Nursing Vital Signs: Initial Vital Signs Temperature 99.4 F 01/09/23 16:20 Pulse Rate 87 01/09/23 16:20 Respiratory Rate 18 01/09/23 16:20 Blood Pressure 147/96 01/09/23 16:20 O2 Sat by Pulse Oximetry 98 01/09/23 16:20 Pain Scale Pain Intensity 0 - Physical Exam General Appearance: no apparent distress, alert, anxiety Eye Exam: PERRL/EOMI, eyes nml inspection Ears, Nose, Throat Exam: normal ENT inspection, moist mucous membranes Neck Exam: normal inspection, non-tender, supple, full range of motion Respiratory Exam: normal breath sounds, lungs clear, airway intact, No chest tenderness, No respiratory distress Gastrointestinal/Abdomen Exam: soft, normal bowel sounds, tenderness (Mild suprapubic), guarding (Mild to palpation suprapubic), No rebound Pelvic Exam: not done Rectal Exam: not done Back Exam: normal inspection, normal range of motion, No CVA tenderness, No vertebral tenderness Extremity Exam: normal inspection, normal range of motion, pelvis stable Neurologic Exam: alert, oriented x 3, cooperative, kiln operator II-XII nml as tested, normal mood/affect, nml cerebellar function, nml station & gait, sensation nml Skin Exam: normal color, warm, dry Lymphatic Exam: No adenopathy SpO2 Interpretation: normal O2 Delivery: Room Air - Course Nursing assessment & vital signs reviewed: Yes Ordered Tests: Active Orders 24 hr Category Date Time Status IV Insertion STAT Care 01/09/23 16:37 Active ABDOMEN AND PELVIS W/0 CONTRAS [CT] Stat Exams 01/09/23 16:38 Ordered BLOOD CULTURE Stat Lab 01/09/23 17:00 Received CBC W DIFF Stat Lab 01/09/23 16:55 Completed CMP Stat Lab 01/09/23 16:55 Completed HCG QUALITATIVE,SERUM Stat Lab 01/09/23 16:55 Completed Lactic Acid Stat Lab 01/09/23 16:37 Ordered UA W/RFX UR CULTURE Stat Lab 01/09/23 16:41 Completed Medication Summary Discontinued Medications Generic Name Dose Route Start Last Admin Trade Name Freq PRN Reason Stop Dose Admin Sodium Chloride 1,000 mls @ 999 mls/hr 01/09/23 16:37 01/09/23 16:45 Sodium Chloride 0.9% 1000 Ml IV 01/09/23 17:37 999 mls/hr .Q1H1M STA Administration Sodium Chloride Confirm 01/09/23 16:45 Sodium Chloride 0.9% 1000 Ml Administered 01/09/23 16:46 Dose 1,000 mls @ ud .ROUTE .STK-MED ONE Lab/Rad Data: Laboratory Result Diagrams 01/09/23 16:55 01/09/23 16:55 Laboratory Results 01/09/23 01/09/23 01/09/23 Range/Units 16:55 16:55 16:55 WBC 5.6 (4.0-10.5) x10^3/uL RBC 4.34 (4.1-5.4) x10^6/uL Hgb 12.9 (12.0-16.0) g/dL Hct 39.3 (35-47) % MCV 90.6 (78-100) fL MCH 29.7 (26-32) pg MCHC 32.8 (32-36) g/dL RDW 12.9 (11.5-14.0) % Plt Count 257 (150-450) x10^3/uL MPV 9.1 (7.5-11.0) fL Gran % 54.8 (36.0-66.0) % Immature Gran % (Auto) 0.4 (0.00-0.4) % Nucleat RBC Rel Count 0.0 (0.00-0.1) % Eos # (Auto) 0.07 (0-0.5) x10^3/uL Immature Gran # (Auto) 0.02 (0.00-0.03) x10^3u/L Absolute Lymphs (auto) 1.81 (1.0-4.6) x10^3/uL Absolute Monos (auto) 0.56 (0.0-1.3) x10^3/uL Absolute Nucleated RBC 0.00 (0.00-0.01) x10^3u/L Lymphocytes % 32.4 (24.0-44.0) % Monocytes % 10.0 (0.0-12.0) % Eosinophils % 1.3 (0.00-5.0) % Basophils % 1.1 (0.0-0.4) % Absolute Granulocytes 3.06 (1.4-6.9) x10^3/uL Basophils # 0.06 (0-0.4) x10^3/uL Sodium 140 (137-145) mmol/L Potassium 3.7 (3.5-5.1) mmol/L Chloride 103 (98-107) mmol/L Carbon Dioxide 26 (22-30) mmol/L Anion Gap 15.0 (5-15) MEQ/L BUN 9 (7-17) mg/dL Creatinine 0.63 (0.52-1.04) mg/dL Estimated GFR > 60.0 ML/MIN Glucose 86 (74-106) mg/dL Calcium 9.1 (8.4-10.2) mg/dL Total Bilirubin 0.50 (0.2-1.3) mg/dL AST 25 (14-36) U/L ALT 15 (0-35) U/L Alkaline Phosphatase 105 (38-126) U/L Serum Total Protein 8.3 H (6.3-8.2) g/dL Albumin 4.7 (3.5-5.0) g/dL Serum , Qual NEGATIVE (Negative) Urine Color (Yellow) Urine Appearance (Clear) Urine pH (4.6-8.0) Ur Specific [place] (1.005-1.030) Urine Protein (Negative) Urine Glucose (UA) (Negative) mg/dL Urine Ketones (Negative) Urine Blood (Negative) Urine Nitrite (Negative) Urine Bilirubin (Negative) Urine Urobilinogen (0.2) mg/dL Ur Leukocyte Esterase (Negative) U Hyaline Cast (Auto) (0-2) /LPF Urine Microscopic RBC (0-5) /HPF Urine Microscopic WBC (0-5) /HPF Ur Epithelial Cells (None Seen) /HPF Urine Bacteria (None Seen) /HPF Urine Culture Reflexed (NO) 01/09/23 Range/Units 16:41 WBC (4.0-10.5) x10^3/uL RBC (4.1-5.4) x10^6/uL Hgb (12.0-16.0) g/dL Hct (35-47) % MCV (78-100) fL MCH (26-32) pg MCHC (32-36) g/dL RDW (11.5-14.0) % Plt Count (150-450) x10^3/uL MPV (7.5-11.0) fL Gran % (36.0-66.0) % Immature Gran % (Auto) (0.00-0.4) % Nucleat RBC Rel Count (0.00-0.1) % Eos # (Auto) (0-0.5) x10^3/uL Immature Gran # (Auto) (0.00-0.03) x10^3u/L Absolute Lymphs (auto) (1.0-4.6) x10^3/uL Absolute Monos (auto) (0.0-1.3) x10^3/uL Absolute Nucleated RBC (0.00-0.01) x10^3u/L Lymphocytes % (24.0-44.0) % Monocytes % (0.0-12.0) % Eosinophils % (0.00-5.0) % Basophils % (0.0-0.4) % Absolute Granulocytes (1.4-6.9) x10^3/uL Basophils # (0-0.4) x10^3/uL Sodium (137-145) mmol/L Potassium (3.5-5.1) mmol/L Chloride (98-107) mmol/L Carbon Dioxide (22-30) mmol/L Anion Gap (5-15) MEQ/L BUN (7-17) mg/dL Creatinine (0.52-1.04) mg/dL Estimated GFR ML/MIN Glucose (74-106) mg/dL Calcium (8.4-10.2) mg/dL Total Bilirubin (0.2-1.3) mg/dL AST (14-36) U/L ALT (0-35) U/L Alkaline Phosphatase (38-126) U/L Serum Total Protein (6.3-8.2) g/dL Albumin (3.5-5.0) g/dL Serum , Qual (Negative) Urine Color Yellow (Yellow) Urine Appearance Clear (Clear) Urine pH 7.0 (4.6-8.0) Ur Specific [place] <=1.005 (1.005-1.030) Urine Protein Negative (Negative) Urine Glucose (UA) Negative (Negative) mg/dL Urine Ketones Negative (Negative) Urine Blood Large A (Negative) Urine Nitrite Negative (Negative) Urine Bilirubin Negative (Negative) Urine Urobilinogen 0.2 (0.2) mg/dL Ur Leukocyte Esterase Negative (Negative) U Hyaline Cast (Auto) NONE SEEN (0-2) /LPF Urine Microscopic RBC 3-5 (0-5) /HPF Urine Microscopic WBC 0-2 (0-5) /HPF Ur Epithelial Cells Few (None Seen) /HPF Urine Bacteria None Seen (None Seen) /HPF Urine Culture Reflexed NO (NO) - Progress Progress: improved, re-examined Air Movement: good Progress Note: 01/09/23 18:04 CT scan of the abdomen pelvis without contrast shows no acute intra-abdominal or intra pelvic findings. This patient has medical issue of moderate complexity. This is based on the patient's primary complaint, review of the patient's medical history, review of the patient's allergies, the patient's history of present illness and the fi ndings on physical examination. The above prompted me to place an intravenous line, provide the patient with intravenous fluid normal saline bolus and obtain urinalysis and blood work as well as CAT scan of the abdomen pelvis. The results of the urinalysis, blood work and CAT scan reviewed by me. Patient responded well to the treatment here in the emergency department. Given the fact the patient had a procedure done and was having pain, low-grade fever and chills I opted to provide her with 500 mg oral Levaquin. We will continue Cipro 500 mg orally twice a day for 5 days as an outpatient. She is to drink plenty of fluids. She was told that if she has persistent vaginal bleeding she needs to follow-up with Dr. Manzanares. If she becomes symptomatic with shortness of breath and weakness she should proceed to [facility] to be evaluated by Dr. Manzanares ([employer]). At this day and time [facility] is not excepting any emergent transfers as there are several people boarding in the emergency department and transfers are placed on a list and transfer times are approximately 48 hours. Blood Culture(s) Obtained: Yes Antibiotics given: Yes Counseled pt/family regarding: lab results, diagnosis, need for follow-up, rad results Medical Desision Making - Discussion of managment Reviewed:: Test results Agreed on:: Treatment plan, need for follow-up - Diagnostic Testing Diagnostic test were ordered, analyzed, and reviewed by me: Yes Radiological Interpretation: Reviewed by me, Teleradiologist Report - Risk of complications Minimal Risk: Minimal risk of morbidity - Departure Departure Disposition: Home Clinical Impression: Postoperative vaginal bleeding, Fever, Chills with fever Condition: Stable Critical Care Time: No Referrals: BOBBY TAPIA, CYTOGENETIC TECHNICIAN [Primary Care Provider] - Follow up/PCP as directed Additional Instructions: Drink plenty of fluids. Use Tylenol and ibuprofen for pain control and fever control. Follow-up with Dr. Manzanares ([employer]AD[employer]) for further evaluation and management. Take your antibiotics as prescribed. Prescriptions: Ciprofloxacin [Cipro 500 MG] 500 mg PO BID #10 tablet
[2023-01-09] MEDS ORDERED: Sodium Chloride 0.9% 1000 ML 1,000 ML IV STA (16:37)
[2023-01-09 16:38] VITALS: BP 147/96; PULSE 87; O2SAT 98
[2023-01-09] MEDS ORDERED: Sodium Chloride 0.9% 1000 ML 1,000 ML ONE (16:45)
[2023-01-09 17:10] LABS: Absolute Neutrophil Ct (ANC) 3.06 x10^3/uL (1.4-6.9); BASOPHIL % 1.1 % (0.0-0.4); Basophil (Absolute #) 0.06 x10^3/uL (0-0.4); Eosinophil % 1.3 % (0.00-5.0); Eosinophil (Absolute #) 0.07 x10^3/uL (0-0.5); Hematocrit 39.3 % (35-47); Hemoglobin 12.9 g/dL (12.0-16.0); IMMATURE GRAN # 0.02 x10^3u/L (0.00-0.03); IMMATURE GRAN % 0.4 % (0.00-0.4); Lymphocyte (Absolute #) 1.81 x10^3/uL (1.0-4.6); Lymphocytes % 32.4 % (24.0-44.0); Mean Cell Volume 90.6 fL (78-100); Mean Corpuscular Hemoglobin 29.7 pg (26-32); Mean Corpuscular Hgb Concent. 32.8 g/dL (32-36); Mean Platelet Volume 9.1 fL (7.5-11.0); Monocyte (Absolute #) 0.56 x10^3/uL (0.0-1.3); Neutrophil % 54.8 % (36.0-66.0); Platelet Count 257 x10^3/uL (150-450); Red Blood Count 4.34 x10^6/uL (4.1-5.4); Red Cell Distribution Width 12.9 % (11.5-14.0); White Blood Count 5.6 x10^3/uL (4.0-10.5)
[2023-01-09 17:18] LABS: Appearance Clear (Clear); Bacteria None Seen /HPF (None Seen); Bilirubin Negative (Negative); Blood Large (Negative); Epithelial Cells Few /HPF (None Seen); Glucose, Urine Negative (Negative); Hyaline Casts NONE SEEN /LPF (0-2); Ketones Negative (Negative); Leukocyte Esterase Negative (Negative); Nitrite Negative (Negative); Protein,Urine Dip Negative (Negative); Specific Gravity <=1.005 (1.005-1.030); Urobilinogen 0.2 mg/dL (0.2); WBC 0-2 /HPF (0-5)
[2023-01-09 17:18] LABS: ALBUMIN 4.7 g/dL (3.5-5.0); ALKALINE PHOSPHATASE 105 U/L (38-126); BLOOD UREA NITROGEN 9 mg/dL (7-17); CHLORIDE 103 mmol/L (98-107); Calcium 9.1 mg/dL (8.4-10.2); Carbon Dioxide 26 mmol/L (22-30); Creatinine 1 0.63 mg/dL (0.52-1.04); EST GLOMERULAR FILTRATION RATE > 60.0 ML/MIN; Glucose 86 mg/dL (74-106); Potassium 3.7 mmol/L (3.5-5.1); SGOT/AST 25 U/L (14-36); SGPT/ALT 15 U/L (0-35); SODIUM 140 mmol/L (137-145); Total Protein 8.3 g/dL (6.3-8.2)
[2023-01-09 17:31] LABS: ADD URINE CULTURE? NO (NO)
[2023-01-09] MEDS ORDERED: Levofloxacin 500 MG Tablet PO ONE (18:03)
[2023-01-09] MEDS ORDERED: Levofloxacin 500 MG Tablet ONE (18:17)
--- NOTE | 2023-01-09 20:23 | XRAY ---
Indication: Vaginal bleeding and fever. Status post IUD removal. Multiple contiguous axial images obtained through the abdomen and pelvis without contrast. Comparison: None Lung bases clear. Heart not enlarged. Noncontrasted stomach and bowel loops appear nonobstructed with normal appendix. Previous cholecystectomy. No free fluid/air. Remaining liver, pancreas, spleen, adrenal glands, kidneys, ureters, bladder, uterus, and aorta are unremarkable for noncontrast exam. Osseous structures intact. Impression: CT abdomen/pelvis without contrast exam is negative Comment: Preliminary interpretation made by [facility]. No critical discrepancy.
== END 2023-01-09 18:34 | disposition home or self-care (01) ==
LOC: ED 16:15
DX: N99.820 Postprocedural hemorrhage of a genitourinary system organ or structure following a genitourinary system procedure (principal); N93.9 Abnormal uterine and vaginal bleeding, unspecified; R50.9 Fever, unspecified; I10 Essential (primary) hypertension; Z79.899 Other long term (current) drug therapy; Z72.0 Tobacco use
CPT/HCPCS: 36000; 36415; 74176; 80053; 81001; 84703; 85025; 87040; 96360; 99284; A9270-GY